=== PATIENT | male | born 1985 | race Caucasian/White ===

== ENCOUNTER → 2016-10-26 | Outpatient (CLI) | payer BC ==
[~2016-10-26] MED LIST: PERCOCET 10-321 EACH PO
== END ==
LOC: KOH-I 13:27
DX: M24.622 Ankylosis, left elbow (principal); S52.122A Displaced fracture of head of left radius, initial encounter for closed fracture; S52.132A Displaced fracture of neck of left radius, initial encounter for closed fracture
CPT/HCPCS: 73200

== ENCOUNTER → 2016-11-10 | Day surgery (SDC) | payer BC | END | disposition home or self-care (01) | LOC: OR 07:19 | PROVIDERS: Orthopaedic Surgery | PROC: 0RQM0ZZ Repair Left Elbow Joint, Open Approach (ICD-10-PCS; principal; 2016-11-10 09:45) | DX: S52.122A Displaced fracture of head of left radius, initial encounter for closed fracture (principal); K21.9 Gastro-esophageal reflux disease without esophagitis; Z90.89 Acquired absence of other organs; V89.2XXA Person injured in unspecified motor-vehicle accident, traffic, initial encounter; Z79.1 Long term (current) use of non-steroidal anti-inflammatories (NSAID) | CPT/HCPCS: 73070; 76000; C1776; J0690; J1100; J2250; J2270; J2405; J2710; J2765; J2795; J3010; J7030; J7120 ==